=== PATIENT | male | born 1995 | race Caucasian/White ===

== ENCOUNTER 2023-04-24 20:39 | Emergency (ER) | payer MEDICARE, OTHER, SELFPAY ==
[2023-04-24] VITALS (7 sets, daily range): BP systolic 93–101; BP diastolic 60–77; BMI 23.2
[2023-04-24] MEDS: NSS 500 IV (21:14)
--- NOTE | 2023-04-24 22:56 | ED.GENMED ---
History of Present Illness
General
Chief Complaint: Overdose Unintentional
Source: patient, family (Parents) and ambulance crew
Exam Limitations: none
Time Seen by Provider: 04/24/23 21:04
Nursing documentation reviewed up to this point in time: agreed with
Travel History
Have you had any contact with someone who has COVID-19?: No
Do you have any symptoms of coronavirus? Fever > 100 degrees, chills, cough, shortness of breath, sore throat, loss of taste or smell, muscle aches, or headache?: No
History of Present Illness
History of Present Illness:
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
from home for evaluation after an unintentional overdose. Patient reports that he took 1 pill of what he thought was just a Xanax tonight he thinks it was adulterated with opiate apparently became unresponsive and EMS was called by his parents he
was given 4 mg of Narcan and immediately woke up. Was transported to the emergency room for assessment. Patient says that he feels well now has no complaints. Denies any nausea or vomiting. Denies any headache. Denies any abdominal pain.
Denies any shortness of breath. He is currently on house arrest for drug violations per mother.
Past History
Past History
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
ED Past Surgical History: Urological (Superpubic cath, Double J stents, nephrostomy tubes)
Social History
Tobacco: Non-smoker
Alcohol: None
Drug: Marijuana and Narcotics (Heroine and Fentanyl snorts)
Personal: Single
Living: with family
Review of Systems
Review of Systems
All Other Systems: ROS reviewed and negative except as documented in HPI and ROS
Respiratory: Denies trouble breathing
Cardiac: Denies chest pain
ABD/GI: Denies abdominal pain, nausea, vomiting or diarrhea
: Denies flank pain
Musculoskeletal: Denies neck pain or back pain
Neurological: Denies headache
Phy Exam
Physical Exam
Physical Exam:
General: Awake, alert, oriented x3; no acute distress
Head: Normocephalic, atraumatic
Eyes: Conjunctiva normal, pupils 4 mm and reactive to light bilaterally
Throat: Airway intact, handling secretions; very poor dentition
Neck: Trachea midline, supple without meningismus
Lungs: Clear to auscultation bilaterally, no wheezing, rales, rhonchi
Heart: Regular rate and rhythm, no murmurs, gallops, or rubs
Abd: Soft, non distended, nontender
Back: Bilateral nephrostomy tubes in place no signs of infection
Neuro: Cranial nerves grossly intact, speech fluid
Skin: no rash
Extremities: No edema in extremities, equal pulses in all extremities; tracking anklet on right ankle
Scores
Heart Failure Risk
Heart Failure Risk Score: Not Applicable
Heart Score for Chest Pain Patients
STEMI patient?: Not applicable
Withdrawal Assessment of Alcohol
Withdrawal Assessment Completed?: Not applicable
Course
Orders/Labs/Results
Orders:
Orders
04/24/23 21:11
Pulse Ox/cont/shift [RESP] Stat
Quantity: 1
04/24/23 21:12
0.9% Sodium Chloride 500 ml [Nss] 500 ml IV BOLUS
Vital Signs
Initial and Last Documented VS:
Initial Vital Signs
Temp Pulse Resp BP Pulse Ox
36.7 C 71 16 93/65 100
04/24/23 20:42 04/24/23 20:42 04/24/23 20:42 04/24/23 20:42 04/24/23 20:42
Last Documented Vital Signs
Temp Pulse Resp BP Pulse Ox
36.7 C 75 17 93/60 96
04/24/23 23:06 04/24/23 23:45 04/24/23 23:45 04/24/23 23:00 04/24/23 23:45
MDM/Problems Addressed
Differential Diagnosis Includes:
Opioid overdose, benzodiazepine overdose
MDM/Problems Addressed:
27-year-old male presents with parents for evaluation after an unintentional opioid overdose. Patient claims that he was just using benzos but became unresponsive and required Narcan with immediate response. He is now widely awake and has no
complaints. He is currently on house arrest. He takes methadone chronically for his opioid use. Will continue to monitor here in the emergency room on continuous pulse oximetry. Will provide some gentle fluids. Repeat Narcan if needed.
Discussed with PATT to speak with patient.
PATT spoke with patient�she is already plugged into intensive outpatient treatment and on methadone. Apparently police also reported this episode to patient's air control/anti air warfare officer; he is currently on house arrest for substance violations. Provided
Narcan to patient/parents in hand here--patient currently lives with parents.
Observed for 4 hours with no need for repeat Narcan patient awake and alert with stable vital signs. Will discharge with Narcan in hand as above.
Chronic conditions affecting care:
Substance use
*Pulse Oximetry
Patient hypoxic: no
*Critical Care Note
Total Time (30-74mins, 75-104mins- exclusive of procedures): Not Applicable
Data Reviewed
Source: patient, family and ambulance crew
Patient Management
Social determinants of health affecting care: Substance abuse
Discussion with other providers: Other (spoke with PATT)
ED Attending Note
-
Portions of this chart may have been created with voice recognition software.� Occasional wrong word or��sound alike� substitutions may have occurred due to the inherent limitations of voice recognition software.
Discharge Plan
Departure
Patient Disposition: Home (Routine Discharge)
Date of Disposition: 04/25/23
Time of Disposition: 00:30
Patient with high blood pressure during this ER visit?: No
Discharge Problem:
Opioid overdose
Instructions: Opioid Overdose (DC), How to Give Naloxone
Prescriptions:
No Action
quetiapine 100 MG tablet
200 mg PO DAILY
prochlorperazine maleate 10 MG tablet
10 mg PO Q8HPRN PRN (Reason: nausea) Qty: 20 0RF
buprenorphine HCl 2 MG tablet, sublingual
2 mg sublingual Daily Qty: 14 0RF
naloxone 0.4 MG/ML solution
0.4 mg IM UD Qty: 1 0RF
quetiapine 100 mg tablet
100 mg PO HS Qty: 10 0RF
levofloxacin 500 mg tablet
500 mg PO DAILY 7 Days Qty: 7 0RF
cefdinir 300 mg capsule
300 mg PO BID Qty: 14 0RF
ondansetron 4 mg tablet,disintegrating
4 mg PO Q8H PRN (Reason: nausea and vomiting) 4 Days Qty: 10 0RF
cefdinir 300 mg capsule
300 mg PO BID Qty: 20 0RF
Referrals:
UNKNOWN - PT DOES,NOT KNOW [Family Provider] -
Activity Restrictions/Additional Instructions:
YOU MUST STOP USING DRUGS OR IT WILL KILL YOU. IF YOU EVER NEED HELP WITH YOUR SUBSTANCE USE YOU CAN ALWAYS RETURN TO THE ED HERE.
Thank you for visiting the Emergency Department at [facility].
1. Please schedule a follow up appointment as directed. Call first thing tomorrow morning to make an appointment.
2. If indicated, please take your medications as instructed and indicated on discharge paperwork.
3. If any of your symptoms do not improve, or persist, or become more severe within 6-12 hours, please return to the emergency department for further care.
4. Please return to the emergency department if you develop a headache, neck pain/stiffness, fever greater than 100.4F, chest pain, shortness of breath, persistent nausea, vomiting, slurred speech, difficulty walking, numbness/tingling, weakness,
signs of infection or any other symptoms that are worrisome to you.
Please call [phone] if you have any questions.
Interventions
Interventions:
*Risk Screen - Suicide Last Done: 04/24/23 20:42
*General Assessment Last Done: 04/24/23 20:42
*Neglect/Abuse Screening Last Done: 04/24/23 20:42
ED- Cardiac Assessment Last Done: 04/24/23 21:00
ED- Neurological Assessment Last Done: 04/24/23 21:00
ED-Psychological Assessment Last Done: 04/24/23 21:00
ED- Pulmonary Assessment Last Done: 04/24/23 21:00
[2023-04-25] VITALS: BP 92/60
== END 2023-04-25 01:25 | disposition home or self-care (01) ==
LOC: EMR 20:39
PROVIDERS: EMERGENCY PHYSICIAN Emergency Medicine
DX: T40.2X1A Poisoning by other opioids, accidental (unintentional), initial encounter (principal); R40.4 Transient alteration of awareness; F43.10 Post-traumatic stress disorder, unspecified; I12.9 Hypertensive chronic kidney disease with stage 1 through stage 4 chronic kidney disease, or unspecified chronic kidney disease; N18.9 Chronic kidney disease, unspecified; F11.20 Opioid dependence, uncomplicated; K21.9 Gastro-esophageal reflux disease without esophagitis; F41.9 Anxiety disorder, unspecified; F32.A Depression, unspecified; F90.9 Attention-deficit hyperactivity disorder, unspecified type; F19.10 Other psychoactive substance abuse, uncomplicated; F17.210 Nicotine dependence, cigarettes, uncomplicated; Z93.6 Other artificial openings of urinary tract status; Z85.830 Personal history of malignant neoplasm of bone; Z92.3 Personal history of irradiation; Z92.21 Personal history of antineoplastic chemotherapy
CPT/HCPCS: 99284; 96360

== ENCOUNTER 2023-06-13 16:17 | Inpatient (IN) | payer MEDICARE, OTHER, SELFPAY ==
[2023-06-13] VITALS (21 sets, daily range): BP systolic 90–146; BP diastolic 58–106; BMI 21.9
--- NOTE | 2023-06-13 12:30 | ED.GENMED ---
History of Present Illness
General
Chief Complaint: Overdose Unintentional
Time Seen by Provider: 06/13/23 12:22
Travel History
Have you had any contact with someone who has COVID-19?: No
Do you have any symptoms of coronavirus? Fever > 100 degrees, chills, cough, shortness of breath, sore throat, loss of taste or smell, muscle aches, or headache?: No
History of Present Illness
History of Present Illness:
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
overdose. Has a history of chronic opioid use, on methadone, was in this hospital 2 months ago after an opioid overdose. Father is aware of the that the patient uses fentanyl. Was given 4 mg of intranasal Narcan and CPR was initiated for the
patient woke up. On my examination the patient is somnolent with incomprehensible speech but adequate respiratory drive. Per father his last nephrostomy tube change was at least 3 months ago at [facility], this is supposed to be done monthly or
bimonthly
Past History
Past History
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
ED Past Surgical History: Urological (Superpubic cath, Double J stents, nephrostomy tubes)
Social History
Tobacco: Non-smoker
Alcohol: None
Drug: Marijuana and Narcotics (Heroine and Fentanyl snorts)
Personal: Single
Living: with family
Review of Systems
Review of Systems
Allergies reviewed?: Yes
All Other Systems: ROS reviewed and negative except as documented in HPI and ROS
Phy Exam
Physical Exam
Physical Exam:
GEN: Somnolent, pale, ill-appearing
Eyes: PERRLA, EOMs intact, no scleral icterus
HENT: NCAT, oral mucosa moist
Lungs: CTAB, no wheezes, rales, rhonchi, normal chest wall excursion
Cardiac: RRR, no M/R/G, no peripheral edema. Radial pulses 2+ bilat
Abdomen: S, NT, ND, NABS, no masses or hepatosplenomegaly. Bilateral nephrostomy tube sites without erythema or discharge
Neuro: A somnolent, minimal arousable to voice, incomprehensible speech
MSK: No gross deformity or ecchymosis.
Skin: No rashes, petechiae. Normal color, no pallor or jaundice.
Psych: Calm, cooperative, proper hygiene
Course
Orders/Labs/Results
Orders:
Orders
06/13/23 12:28
Electrocardiogram (*1) Urgent
Reason for Study: Other
Other Reason for Exam: overdose
EKG- Treatment ONCE
06/13/23 12:30
Naloxone [Narcan] 2 mg .ROUTE .STK-MED ONE
Naloxone [Narcan] 2 mg IV NOW STA
06/13/23 12:35
Complete Blood Count/With Diff Urgent
Comprehensive Metabolic Panel Urgent
06/13/23 13:07
Cefepime HCl [Maxipime] 1,000 mg IV NOW STA
06/13/23 13:13
Lactic Acid Q4H
Comment: CANCEL 2nd LACTIC ACID IF 1st LACTIC ACID IS LESS THAN 2
Blood Culture Q30M
PEDRO LUIS Source: Blood/Venous
Specimen Description:
06/13/23 13:20
Urinalysis Reflex To Culture Urgent
Date Specimen was Collected: 06/13/23
Time Specimen was Collected: 13:12
Urine Microscopic Reflex Cult Urgent
Blood Culture Q30M
PEDRO LUIS Source: Blood/Venous
Specimen Description:
Urine Culture Urgent
PEDRO LUIS Source: U
Specimen Description:
Date Specimen was Collected: 06/13/23
Time Specimen was Collected: 13:12
06/13/23 13:26
CT Abd/pel Without Iv Or Oral Urgent
Comment:
Reason For Exam: renal failure, bilat nephro tubes
06/13/23 13:39
Sterile Water [Sterile Water For Injection] 10 ml .ROUTE .K-MED ONE
06/13/23 15:19
Admit/Transfer Patient As Directed
Co-Sign Provider:
Level of Care: Inpatient admission
Assign to:: IMU- Intermediate Care
Physician / Group: Alcira
Diagnosis: Drug overdose
Reason for Hospitalization: Drug dose and mental status change
Expected length of stay greater than two midnights?: Yes
ELOS- Estimated Length of Stay in days: 3
I certify the patient meets the requirements for IP care: Yes
06/13/23 15:21
Code Status As Directed
Resuscitation Status: Full Code
06/13/23 16:00
Dextrose 5%/0.9%Sodchl 1000 ml [D5/0.9% Sodium Chloride] 1,000 ml IV 100 mls/hr
Abnormal Lab Results
06/13/23 06/13/23
12:35 13:20
WBC 15.1 H 10^3/uL
(4.8-10.8)
RBC 3.13 L 10^6/uL
(4.70-6.10)
Hgb 9.2 L g/dL
(13.0-18.0)
Hct 30.2 L %
(39.0-52.0)
MCV 96.5 H fL
(80.0-94.0)
MCHC 30.5 L g/dL
(33.0-37.0)
Abs Immat Gran (auto) 0.1 H 10^3/uL
(0-0.05)
Absolute Neuts (auto) 10.5 H 10^3/uL
(1.4-6.5)
Absolute Monos (auto) 1.0 H 10^3/uL
(0.1-0.6)
Absolute Eos (auto) 0.8 H 10^3/uL
(0-0.7)
Immature Gran % 0.9 H %
(0-0.5)
Lymphocytes % 17.1 L %
(20.5-51.1)
Chloride 109 H mmol/L
(98-107)
BUN 75 H mg/dl
(9-20)
Creatinine 3.9 H mg/dL
(0.7-1.3)
Glucose 106 H mg/dl
(70-99)
Ur Occult Blood Reflex 2+ A
(Negative)
Leukocyte Esterase Rfl 2+ A
(Negative)
Urine WBC (Reflex) >100 A /HPF
(0-5)
Urine Bacteria (Reflex) Many A
(Negative)
Urine Albumin (Reflex) 1+ A
(Neg - Trace)
06/13/23 12:35
06/13/23 12:35
Vital Signs
Initial and Last Documented VS:
Initial Vital Signs
Temp Pulse Resp BP Pulse Ox
97.5 F 63 16 127/85 100
06/13/23 12:16 06/13/23 12:16 06/13/23 12:16 06/13/23 12:16 06/13/23 12:16
Last Documented Vital Signs
Temp Pulse Resp BP Pulse Ox
97.5 F 70 14 106/72 96
06/13/23 12:16 06/13/23 14:15 06/13/23 14:15 06/13/23 14:15 06/13/23 14:15
MDM/Problems Addressed
MDM/Problems Addressed:
Although he presented this patient does not signs of sepsis including leukocytosis, urinalysis taken from the nephrostomy is clearly infected. Will start the patient on broad-spectrum antibiotics, acute kidney injury could be on the basis of sepsis
versus nephrostomy obstruction versus prerenal due to lack of fluid intake. Will start IV fluid resuscitation. Did require multiple rounds of low-dose naloxone in the emergency department to return to mental status capable of maintaining his
airway. Will be admitted to the hospital service for further management
*Critical Care Note
Total Time (30-74mins, 75-104mins- exclusive of procedures): Not Applicable
ED Attending Note
-
Portions of this chart may have been created with voice recognition software.� Occasional wrong word or��sound alike� substitutions may have occurred due to the inherent limitations of voice recognition software.
Discharge Plan
Departure
Patient Disposition: Admit
Date of Disposition: 06/13/23
Time of Disposition: 14:39
Admit to: Med/Surg
Presentation/result/management discussed w/ accepting MD/DO: Hospitalist
Discharge Problem:
Opiate overdose, Sepsis, Urinary tract infection
Prescriptions:
No Action
quetiapine 200 mg tablet
100 - 200 mg PO HS
Patient Comments:
06/13/2023: Family unsure if pt is taking full dose of medication
methadone
1 dose PO DAILY
Patient Comments:
06/13/2023: family think he's taking 60-70mg range. Pt goes to [facility] in [place] , Hours: Pr- [id number], SuSa [id number]

Referrals:
UNKNOWN - PT DOES,NOT KNOW [Family Provider] -
Interventions
Interventions:
*Risk Screen - Suicide Last Done: 06/13/23 15:47
*General Assessment Last Done: 06/13/23 12:16
*Neglect/Abuse Screening Last Done: 06/13/23 15:47
ED- Fall Risk Assessment Last Done: 06/13/23 12:43
*ED COVID-19 Vaccine History Last Done: 06/13/23 12:16
ED- Cardiac Assessment Last Done: 06/13/23 12:43
ED- Neurological Assessment Last Done: 06/13/23 12:43
ED-Psychological Assessment Last Done: 06/13/23 15:48
ED- Pulmonary Assessment Last Done: 06/13/23 15:48
Discharge Date and Time
Print Language: [place]
[2023-06-13] MEDS: NARCAN 2 MG IV (12:35)
[2023-06-13 12:49] LABS: % Basophils 0.7 % (0-2); % Eosinophils 5.1 % (0-6); % Immature Granulocytes 0.9 % (0-0.5); % Lymphocytes 17.1 % (20.5-51.1); % Monocytes 6.7 % (1.7-9.3); % Neutrophils 69.5 % (42.2-75.2); Absolute Basophils 0.1 10^3/uL (0-0.2); Absolute Eosinophils 0.8 10^3/uL (0-0.7); Absolute Immature Granulocytes 0.1 10^3/uL (0-0.05); Absolute Lymphocytes 2.6 10^3/uL (1.2-3.4); Absolute Neutrophils 10.5 10^3/uL (1.4-6.5); Hematocrit 30.2 % (39.0-52.0); Hemoglobin 9.2 g/dL (13.0-18.0); Mean Corp Hgb Conc. 30.5 g/dL (33.0-37.0); Mean Corpuscular Hgb 29.4 pg (27.0-31.0); Mean Corpuscular Volume 96.5 fL (80.0-94.0); Mean Platelet Volume 9.5 fL (7.4-10.4); Nucleated Red Blood Cells % 0 % (-); Platelet Count 399 10^3/uL (130-400); Red Blood Cell Count 3.13 10^6/uL (4.70-6.10); Red Cell Dist. Width 12.4 % (11.5-14.5); White Blood Cell Count 15.1 10^3/uL (4.8-10.8)
[2023-06-13 12:54] LABS: ALT (SGPT) 25 U/L (0-50); AST (SGOT) 24 U/L (17-59); Alkaline Phosphatase 109 U/L (38-126); Blood Urea Nitrogen 75 mg/dl (9-20); Carbon Dioxide 22 mmol/L (22-30); Chloride 109 mmol/L (98-107); Glucose 106 mg/dl (70-99); Potassium 4.3 mmol/L (3.5-5.1); Sodium 139 mmol/L (135-145); Total Bilirubin 0.2 mg/dl (0.2-1.3); Total Protein 7.8 g/dl (6.3-8.2); eGFR 20.66
[2023-06-13 13:37] LABS: Lactic Acid 1.5 mmol/L (0.7-2.0)
[2023-06-13] MEDS: MAXIPIME 1000 MG IV (13:40)
[2023-06-13 13:44] LABS: Urine Albumin 1+ (Neg - Trace); Urine Bilirubin Negative (Negative); Urine Character Very Cloudy (Clear); Urine Color Yellow; Urine Glucose Negative (Negative); Urine Ketone Negative (Negative); Urine Leukocyte 2+ (Negative); Urine Nitrite Negative (Negative); Urine Occult Blood 2+ (Negative); Urine Urobilinogen Negative (Neg - 1+)
[2023-06-13 14:35] LABS: Urine Bacteria Many (Negative); Urine White Cell >100 /HPF (0-5)
--- NOTE | 2023-06-13 15:25 | HPS.HSE ---
Family Physician
-
Family Physician: NOT KNOW UNKNOWN - PT DOES
Chief Complaint
-
Mental status change
History of Present Illness
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
sarcoma.
He is has history of recurrent UTI and chronic narcotic use and abuse, and on methadone now.
Currently lethargic but arousable answer question but briefly and sometimes has to pause for a while and vital signs stable, he admitted he over dosed on fentanyl by inhaling it, found unresponsive look like EMS was called CPR was started and given
some Narcan and he woke up.
In the ER as mentioned he is lethargic, answer question briefly and but maintaining normal respiration vital signs and O2 saturation. Denies any fever or chill or cough or congestion or any headache or vision change.
Admit he takes methadone and he is not able to recall the doses right now below, X 60 to 70 mg and the phone number of his methadone clinic is in the chart .
The ER workup concerning for UTI.
According to the ER his father mentioned that the last time his nephrostomy catheter was changed was 3 months ago and supposed to be change monthly. Usually follow-up with [facility].
Currently patient alone in the room no family member at the bedside.
His condition discussed with the ER staff
Medical History
Past Medical History
Past Medical History: Reports Other
Additional Past Medical History:
Past medical history reviewed and obtained from the archive:
Johnson sarcoma, diagnosed in early age, treated with chemo and radiation
Chronic kidney disease stage III-IV
Chronic narcotic dependent
History of narcotic abuse
Recurrent UTI
Status post bilateral nephrostomy tube obstructive and Mcmahan catheter secondary to neurogenic bladder.
Social history: Lives with the family, the details cannot be obtained.
Family history: Cannot be obtained
Past Surgical History: Reports Other
Social History
Unable to obtain full social history at this time due to: Other
Family History
Family History: Other
Allergies / Home Medications
Allergies reflects when Allergies were last updated in [facility].
Home Medications with original date entered in [facility]
Allergy/Medication List:
Allergies
Allergy/AdvReac Type Severity Reaction Status Date / Time
vancomycin Allergy Pharmacy Verified 06/13/23 12:21
to Review
Home Medications
methadone 1 dose PO DAILY 06/13/23
quetiapine 200 mg tablet 100 - 200 mg PO HS 06/13/23
Review of Systems
-
Unable to obtain full review of systems at this time due to: Acuity
Physical Exam
Vital Signs
Vital Signs
Temp Pulse Resp BP Pulse Ox
97.5 F 70 14 106/72 96
06/13/23 12:16 06/13/23 14:15 06/13/23 14:15 06/13/23 14:15 06/13/23 14:15
Physical exam:
General: Does not follows command full Sleepy, arousable, verbalize few words, not in distress, oriented to person and place, maintain normal respiration,, not in distress and holds appropriate conversation.
HEENT: No active discharge, ecchymosis or bruising, dry lips, tongue and mucous membrane.
Eyes: No discharge or red conjunctiva, no nystagmus, pupils are reactive and equal
Neck:Supple, no JVD no bruit no goiter.
Respiratory: Normal AP contour and diameter, normal chest wall movement, normal respiratory effort, no respiratory distress,
Lungs: Good air entry bilaterally, no wheezing or rhonchi, no rales or crackles
Heart: S1, S2 regular, normal rate, no added sound.
Genitourinary: Status post suprapubic Mcmahan catheter no skin abnormality, also bilateral nephrostomy tube with no leak or abnormality around the tubes.
Gastrointestinal: Positive bowel sounds, soft, nontender, no guarding or rigidity or organomegaly
Musculoskeletal: , no chest wall abnormality or tenderness. All joints and extremities have good range of motion, no muscle tenderness or any joint swelling or tenderness.
Extremities: No pitting edema, good peripheral pulses, good range of motion
Skin: Warm and dry, no ulceration, normal color.
Neurological: Sleepy, lethargic, arousable, does not follows command fully, good muscle tone
Physical Exam
General: Other
Laboratory Results
-
06/13/23 12:35
06/13/23 12:35
Laboratory Results
Lactic Acid Cancelled 06/13/23 17:15
Total Bilirubin 0.2 mg/dl (0.2-1.3) 06/13/23 12:35
AST 24 U/L (17-59) 06/13/23 12:35
ALT 25 U/L (0-50) 06/13/23 12:35
Alkaline Phosphatase 109 U/L (38-126) 06/13/23 12:35
Data Reviewed
-
Medical Tests (Nuc Med, Echo, EKG etc): Image Personally Visualized and interpreted
Lab Data: Labs Reviewed by me
Old Records: Reviewed
Impression/Plan
-
IMPRESSION:
Unfortunate 27-year-old male with history of Johnson sarcoma status post chemoradiation leading to neurogenic bladder and having bilateral nephrostomy and suprapubic catheter also has a history of the chronic narcotic use and abuse. Found for mental
status change which attributed to overdose of fentanyl was patient admitted while other causes like infection to be a possibility.
Acute encephalopathy, likely secondary to Narcan overdose, while other causes including infection may need to be considered and rule out
Fentanyl overdose
Acute on chronic renal failure, his baseline creatinine between 2-3 today's more than 3
Dehydration
Leukocytosis,
Doubt sepsis is on the white cell count elevated and mental status change likely secondary to Narcan abuse
UTI likely secondary to nephrostomy and Mcmahan catheter induced
Chronic narcotic dependent
History of polysubstance abuse
History of Johnson sarcoma
PLAN:
IV fluids with D5 normal saline
Keep n.p.o. for now because of his mentation will monitor if his mentation improves and will start feeding him
Admit in IMU with close monitoring
Get an ABG
Chest x-ray
Will cover with Rocephin as I reviewed the archive and in the past she grew E. coli and sensitive to Rocephin.
Antibiotic to be de-escalated pending culture and sensitivity
Close monitoring of the vital sign and airway.
Will hold off his methadone today when he said he took his dose today until we get actual dose from him tomorrow already has been intoxicated overdose with narcotic
Continue Seroquel
Fall aspiration precaution
Recheck lab
Will see if he is here by Thursday then may consider IR for nephrostomy and suprapubic catheter placement hopefully by then he is jerzy be more alert and tell us what was exactly been change.
CODE STATUS full code
DVT prophylaxis SCD
[2023-06-13] MEDS: D5/0.9% SODIUM CHLORIDE 1000 IV (15:41)
[2023-06-13] MEDS: SEROQUEL 200 MG PO (22:36)
[2023-06-14] VITALS (13 sets, daily range): BP systolic 99–149; BP diastolic 60–97
[2023-06-14] MEDS: ROCEPHIN 1000 MG IV (02:20)
[2023-06-14] MEDS: STERILE WATER FOR INJECTION 10 ML IV (02:20)
[2023-06-14] MEDS: D5/0.9% SODIUM CHLORIDE 1000 IV ×2 (02:21→13:09)
--- NOTE | 2023-06-14 03:27 | PTCARENOTE ---
Pt ringing llanes for drink, SUPERVISOR MILL contacted to see if diet order could be changed. Pt now on Reg diet. Pt becoming more alert. This RN finished admission questions. Prompted to make SUPERVISOR MILL awake of need for COWS, due to drug use. Pt known CKD CrCL less then
25 so holding off medications for now until morning methadone does, per SUPERVISOR MILL. Q1 COWS starting (see work list). Pt medical information release sent down to pharmacy to verify methadone does at Pt clinic. Copy of form on chart. Pt admitted with B/L
capped nephrostomies and suprapubic catheter. Pt also has ankle monitor on, per Pt his youth officer is aware he is in hospital.
[2023-06-14 05:20] LABS: Amphetamines Negative (Negative); Barbiturates Negative (Negative); Benzodiazepines Positive (Negative); Buprenorphine Negative (Negative); Cocaine Negative (Negative); Marijuana Negative (Negative); Methadone Positive (Negative); Methamphetamines Negative (Negative); Opiates Negative (Negative); Phencyclidine Negative (Negative); Tricyclic Antidepressants Negative (Negative)
[2023-06-14 05:37] LABS: % Basophils 0.6 % (0-2); % Eosinophils 5.8 % (0-6); % Immature Granulocytes 0.8 % (0-0.5); % Lymphocytes 17.6 % (20.5-51.1); % Monocytes 7.6 % (1.7-9.3); % Neutrophils 67.6 % (42.2-75.2); Absolute Basophils 0.1 10^3/uL (0-0.2); Absolute Eosinophils 0.7 10^3/uL (0-0.7); Absolute Immature Granulocytes 0.1 10^3/uL (0-0.05); Absolute Monocytes 0.9 10^3/uL (0.1-0.6); Absolute Neutrophils 7.6 10^3/uL (1.4-6.5); Hematocrit 27.9 % (39.0-52.0); Hemoglobin 8.3 g/dL (13.0-18.0); Mean Corp Hgb Conc. 29.7 g/dL (33.0-37.0); Mean Corpuscular Hgb 29.1 pg (27.0-31.0); Mean Corpuscular Volume 97.9 fL (80.0-94.0); Mean Platelet Volume 9.6 fL (7.4-10.4); Nucleated Red Blood Cells % 0 % (-); Platelet Count 357 10^3/uL (130-400); Red Blood Cell Count 2.85 10^6/uL (4.70-6.10); Red Cell Dist. Width 12.2 % (11.5-14.5); White Blood Cell Count 11.3 10^3/uL (4.8-10.8)
[2023-06-14 05:46] LABS: Fentanyl, Urine Positive (Negative)
[2023-06-14 05:56] LABS: Blood Urea Nitrogen 62 mg/dl (9-20); Calcium 9.1 mg/dl (8.4-10.2); Carbon Dioxide 20 mmol/L (22-30); Chloride 112 mmol/L (98-107); Estimated Creatinine Clearance 25 ml/min; Glucose 104 mg/dl (70-99); Potassium 4.3 mmol/L (3.5-5.1); Sodium 139 mmol/L (135-145); eGFR 24.36
--- NOTE | 2023-06-14 06:36 | W.PN.HOSP.TC ---
Today's Communication/Plan
-
cont IVF support
monitor renal function
bladder scan
Urology GI Psych eval
resume home methadone
Assessment / Plan
Assessment / Plan
Physical Exam
General: No pallor, cyanosis, or jaundice.
HEENT: Throat clear. PERRLA Normocephalic atraumatic
NECK: Supple. No JVD Carotid Bruits
RESPIRATORY: Lungs clear to auscultation. No crackles wheezes stridor
CVS: S1, S2 normal. RRR. No murmur, rub or gallop.
ABDOMEN: Soft, non-tender. distended, decreased bowel sounds. flank tenderness
EXTREMITIES: No peripheral cyanosis or edema.
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 Here with Fentanyl overdose UTI possible
pyelonephritis CT concerning for severe hydronephrosis and constipation impaction stercoral colitis suspect opiate induced
Acute encephalopathy, likely secondary to Narcan overdose, while other causes including infection may need to be considered and rule out
Fentanyl overdose
Acute on chronic renal failure, initial Cr 3.9 improved to 3.4 with IVF hydration
Dehydration
UTI possibly pyelonephritis
Severe constipation fecal impaction stercoral colitis
Chronic narcotic dependent
History of polysubstance abuse
History of Johnson sarcoma
PLAN:
Mental status improving
IV fluids with D5 normal saline support
Get an ABG
cont IV ceftriaxone
resume home methadone
Continue Seroquel
Urology and GI eval requested
Bladder scan monitoring
patient reports due for nephrostomy tube exchange June 28 with [facility]
Fall aspiration precaution
CODE STATUS full code
DVT prophylaxis SCD
discussed with patient at bedside and patient's mother Drea over phone
I spent a total of 60 minutes with the patient or on the floor. More than 50% of this time involved counseling and coordination of care.
Anticipated Discharge: 24 - 48 hours
Subjective/Interval History
-
Date of Service: June 14, 2023
Lethargic but arousable conversant. Denies pain nausea vomiting diarrhea constipation. Reports that 'they always say that' in reference to reports severe hydronephrosis and constipation. Reports emptying bladder through tubes without issues.
Objective Data
-
Labs:
Laboratory Results
06/14/23
04:55
WBC 11.3 H
Hgb 8.3 L
Hct 27.9 L
Plt Count 357
Sodium 139
Potassium 4.3
Chloride 112 H
Carbon Dioxide 20 L
BUN 62 H
Creatinine 3.4 H
Glucose 104 H
Calcium 9.1
Vital Signs:
Vital Signs
Temp Pulse Resp BP Pulse Ox
98.5 F 99 14 104/60 96
06/14/23 03:42 06/14/23 06:00 06/14/23 06:00 06/14/23 06:00 06/14/23 06:00
I&O
06/12/23 06/13/23 06/14/23
06:59 06:59 06:59
Intake Total 1820 / 1820
Output Total 900 / 900
Balance 920 / 920
--- NOTE | 2023-06-14 10:19 | CON.GI ---
Consultation
-
Date/Time Consultation Performed: 06/14/23
Performing Provider: Julian Wade MD
Reason for Consultation: constipation
Medical History
Chief Complaint / HPI
Chief Complaint: opiod overdose
History of Present Illness:
The patient is a 27-year-old male with past medical history as noted who presents to the emergency room with opioid overdose. We are consulted for constipation and fecal impaction. He has chronic constipation which likely medication induced, and
takes multiple medications at home including MiraLAX, Senokot and stool softeners as needed. He sees GI at [facility]. Currently is not having any significant abdominal pain, last bowel movement was about [address] scan shows large amount of stool
with possible stercoral proctitis and impaction, though again is not having any significant abdominal pain.
Past Medical History
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
Past Surgical History: Other (Status post bilateral nephrostomy tube obstructive and Mcmahan catheter secondary to neurogenic bladder)
Social History
Drug: Narcotics
Allergies / Home Medications
Allergy/AdvReac Type Severity Reaction Status Date / Time
vancomycin Allergy Pharmacy Verified 06/13/23 12:21
to Review
�Medication �Instructions �Recorded
methadone 1 dose PO DAILY 06/13/23
quetiapine 200 mg tablet 200 mg PO HS 06/13/23
Review of Systems
-
All other systems: A 12 pt ROS was Negative except as stated above in HPI
Vital Signs
Temp Pulse Resp BP Pulse Ox
98.9 F 95 13 114/77 99
06/14/23 07:17 06/14/23 08:00 06/14/23 08:00 06/14/23 08:00 06/14/23 08:00
Physical Exam
Exam
General: NAD
HEENT: MMM, anicteric, no lymphadenopathy
Heart: Regular, no murmurs
Lungs: CTA bilaterally
Abdomen: normal bowel sounds, mildly distended though soft, no tenderness, no rebound or guarding, no masses, bruits or ascites, suprapubic tube in place
Extremeties: no edema
Skin: no rashes
Results
WBC 11.3 10^3/uL (4.8-10.8) H 06/14/23 04:55
Hgb 8.3 g/dL (13.0-18.0) L 06/14/23 04:55
Hct 27.9 % (39.0-52.0) L 06/14/23 04:55
MCV 97.9 fL (80.0-94.0) H 06/14/23 04:55
Plt Count 357 10^3/uL (130-400) 06/14/23 04:55
Absolute Neuts (auto) 7.6 10^3/uL (1.4-6.5) H 06/14/23 04:55
Sodium 139 mmol/L (135-145) 06/14/23 04:55
Potassium 4.3 mmol/L (3.5-5.1) 06/14/23 04:55
Chloride 112 mmol/L (98-107) H 06/14/23 04:55
Carbon Dioxide 20 mmol/L (22-30) L 06/14/23 04:55
BUN 62 mg/dl (9-20) H 06/14/23 04:55
Creatinine 3.4 mg/dL (0.7-1.3) H 06/14/23 04:55
Calcium 9.1 mg/dl (8.4-10.2) 06/14/23 04:55
Total Bilirubin 0.2 mg/dl (0.2-1.3) 06/13/23 12:35
AST 24 U/L (17-59) 06/13/23 12:35
ALT 25 U/L (0-50) 06/13/23 12:35
Alkaline Phosphatase 109 U/L (38-126) 06/13/23 12:35
Diagnostic Image Results:
CT:
IMPRESSION:
1. SEVERE CHRONIC BILATERAL HYDROURETERONEPHROSIS with severe bilateral renal cortical thinning. Interval increase in bilateral intrarenal collecting system and ureteral dilatation since 03/27/2022 (especially on the right). Bilateral percutaneous
nephrostomy tubes in place located in the lower pole right intrarenal collecting system and left renal pelvis.
2. Moderate to severe diffuse distention of the colon and rectum with a large amount of fecal material suggesting SEVERE CONSTIPATION and fecal impaction. MILD STERCORAL COLITIS in the rectum. Colonic and rectal distention could be causing distal
bilateral ureteral obstruction.
3. Moderate distention of the urinary bladder with a suprapubic catheter in place.
4. Moderate retroperitoneal lymphadenopathy which has mildly increased since 03/27/2022 and could be malignant lymphadenopathy or benign reactive lymphadenopathy.
5. Mild hepatosplenomegaly.
6. RENAL OSTEODYSTROPHY with diffuse sclerosis throughout the bones consistent with secondary hyperparathyroidism.
Prior GI Procedures:
EGD:
Colonoscopy:
Assessment / Plan
-
1. Constipation: Likely multifactorial but mostly from medications, chronic, followed at [facility], taking multiple medications. On CT scan has large amount of stool with possible mild stercoral proctitis, though has no pain now and exam is benign. At
this point we will start mineral oil enema, if no results then can advance to milk molasses enema. Would continue bowel regimen and will add MiraLAX daily.
-
-
Thank you for consultation and allowing me to participate in the patient's care. Please call the information assurance GI physician during the after hours with any questions or concerns.
--- NOTE | 2023-06-14 10:55 | W.PN.UPDATE ---
Update Note
Progress Note Update
Patient refusing enema. Again would recommend enema, though also ordered MiraLAX daily. If he is agreeable would do mineral oil enema, followed by milk molasses if not responding. Will sign off for now, please call back with any further questions.
--- NOTE | 2023-06-14 11:05 | PTCARENOTE ---
Pt is refusing enema as he states it makes him anxious. Tried to educate pt with negative results. Pt bladder scan post empting of supra pubic , pt scanned for 610 , attempted to straight cath as protocol and pt refused as he states his supra pubic
tube needs to be changed. will alert Dr Werner
[2023-06-14] MEDS: MIRALAX 17 GRAMS PO (11:25)
--- NOTE | 2023-06-14 11:56 | PTCARENOTE ---
Pt was incont of BM
--- NOTE | 2023-06-14 12:38 | W.PN.URO.CBU ---
Today's Communication / Plan
-
No intervention waranted at present time
Discussed with hospitalist
Assessment / Plan
-
High-pressure neurogenic bladder with chronic vesicoureteral reflux managed with upper and lower tract percutaneous drains ([facility])
Patient is scheduled for tube exchange 06/29/23
Urologically stable and cleared for discharge
Diagnosis
-
Date of Service: June 14, 2023
-
Patient Diagnosis:
Patient was admitted for unintentional narcotic overdose with street drugs
History of Johnson's sarcoma of the pelvic bones diagnosed at age 12 years: treated with chemoradiation (no recurrence)
Neurogenic high-pressure bladder secondary to radiation with resultant reflux nephropathy (upper and lower tract drained percutaneously)
06/13/23 CT scan confirms good drain position (SP tube was clamped for study), marked bilateral hydroureteronephrosis: images personally reviewed
Subjective
-
c/o abdominal pain likely secondary to constipation
Objective
-
Vital Signs
Temp Pulse Resp BP Pulse Ox
98.9 F 95 13 114/77 99
06/14/23 07:17 06/14/23 08:00 06/14/23 08:00 06/14/23 08:00 06/14/23 08:00
Intake and Output
06/13/23 06/14/23 06/15/23
06:59 06:59 06:59
Intake Total 1820 / 1820
Output Total 900 / 900 100 / 100
Balance 920 / 920 -100 / -100
Intake:
Oral fluids 720 / 720
IV fluids (Total) 1100 / 1100
Output:
Urinary Drain Output (Total) 0 / 0
Left Nephrostomy 0 / 0
Right Nephrostomy 0 / 0
Suprapubic output 900 / 900 100 / 100
Laboratory Results
06/14/23 04:55
06/14/23 04:55
Review of Systems
-
Constitutional: No Symptoms
Respiratory: No Symptoms
Cardiac: No Symptoms
Abdomen/GI: Abdominal Pain
Neurological: No Symptoms
Physical Exam
-
General - thin, no acute distress
Abdomen - soft, tender, no rebound pain, tympanitic; SP tube draining clear urine, bilateral nephrostomy tubes draining clear urine
Genitalia - normal
[2023-06-14] MEDS: METHADONE 100 MG/10 ML 40 MG PO (12:48)
--- NOTE | 2023-06-14 13:07 | CS.PSYCHR ---
Consult Summary - Psychiatry
-
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
He is has history of recurrent UTI, narcotic use, now on methadone maintenance for the past few months per pt. Pt presented lethargic, admitted overdose on fentanyl by inhaling it. Pt was reportedly found unresponsive, EMS was called and pt was
revived with Narcan. Pt resting in bed, in no distress, just received confirmed dose of Methadone. Pt denies any suicidal ideation or intent for self harm, states OD on Fentanyl was accidental. Pt reports he goes to [facility] in [place] for
Methadone maint tx. He reports hx of 'PTSD, depression, anxiety,' but denies any active issues. Has occasional nightmares.
Psych Hx: depression, anxiety, PTSD per pt. Hx of outpatient therapy. Denies hx of inpatient tx; denies hx of suicidal behavior
SH: on probation; non-contributory
MSE: alert, oriented, calm, cooperative. Speech coherent, thought clear/goal-directed. Mood/Affect stable/appropriate. No agitation, no signs of psychosis or mood disturbance. Insight appears limited
Imp: Opioid Use d/o, on methadone maintenance tx; accidental OD on Fentanyl
Hx of anxiety, depression, stable on existing med Seroquel. Pt denies any SI
Rec: return to existing Outpatient treatment- Methadone Program- when medically stable
will follow peripherally
[2023-06-14] MEDS: TYLENOL 650 MG PO (21:40)
[2023-06-14] MEDS: SEROQUEL 200 MG PO (21:40)
[2023-06-15] VITALS (12 sets, daily range): BP systolic 122–155; BP diastolic 77–102
[2023-06-15] MEDS: STERILE WATER FOR INJECTION 10 ML IV (01:17)
[2023-06-15] MEDS: ROCEPHIN 1000 MG IV (01:17)
[2023-06-15 04:13] LABS: Hematocrit 28.4 % (39.0-52.0); Hemoglobin 8.8 g/dL (13.0-18.0); Mean Corpuscular Hgb 29.1 pg (27.0-31.0); Mean Platelet Volume 9.4 fL (7.4-10.4); Platelet Count 324 10^3/uL (130-400); Red Blood Cell Count 3.02 10^6/uL (4.70-6.10); Red Cell Dist. Width 12.3 % (11.5-14.5); White Blood Cell Count 12.6 10^3/uL (4.8-10.8)
[2023-06-15 04:25] LABS: Blood Urea Nitrogen 59 mg/dl (9-20); Calcium 9.6 mg/dl (8.4-10.2); Carbon Dioxide 22 mmol/L (22-30); Chloride 106 mmol/L (98-107); Estimated Creatinine Clearance 24 ml/min; Glucose 102 mg/dl (70-99); Magnesium 1.7 mg/dl (1.6-2.3); Phosphorus 3.5 mg/dl (2.5-4.5); Sodium 138 mmol/L (135-145); eGFR 23.53
[2023-06-15] MEDS: TUMS 1 TABLET PO (06:04)
--- NOTE | 2023-06-15 06:05 | PTCARENOTE ---
pt c/o indigestion this AM- asking for tums. notified CASSANDRA CONSULTANT- orders placed and medication given per MAR. left nephro tube leaking- dressing changed, care ongoing.
[2023-06-15] MEDS: METHADONE 100 MG/10 ML 40 MG PO (08:30)
[2023-06-15] MEDS: MIRALAX PO (08:31)
--- NOTE | 2023-06-15 08:32 | PTCARENOTE ---
Pt refused Mirialax states he is allergic
--- NOTE | 2023-06-15 09:30 | W.PN.URO.CBU ---
Today's Communication / Plan
-
Urologically stable
No intervention advised
Assessment / Plan
-
High-pressure neurogenic bladder with chronic vesicoureteral reflux managed with upper and lower tract percutaneous drains ([facility])
Patient is scheduled for tube exchange 06/29/23
He has a creatinine of 3.5: advise SP tube be placed to continuous drainage, but patient declines and the presence of nephrostomy tubes does not make this a necessity
Urologically stable and cleared for discharge to follow up with his care team at [facility]
Diagnosis
-
Date of Service: June 15, 2023
-
Patient Diagnosis:
Patient was admitted for unintentional narcotic overdose with street drugs
History of Johnson's sarcoma of the pelvic bones diagnosed at age 12 years: treated with chemoradiation (no recurrence)
Neurogenic high-pressure bladder secondary to radiation with resultant reflux nephropathy (upper and lower tract drained percutaneously)
06/13/23 CT scan confirms good drain position (SP tube was clamped for study), marked bilateral hydroureteronephrosis: images personally reviewed
Subjective
-
Patient offers no complaints
States that his drains are all functioning normally
Objective
-
Vital Signs
Temp Pulse Resp BP Pulse Ox
98.7 F 113 15 128/84 98
06/15/23 08:00 06/15/23 08:00 06/15/23 08:00 06/15/23 08:00 06/15/23 08:00
Intake and Output
06/14/23 06/15/23 06/16/23
06:59 06:59 06:59
Intake Total 1820 / 1820 480 / 480
Output Total 900 / 900 3275 / 3275 400 / 400
Balance 920 / 920 -2795 / -2795 -400 / -400
Intake:
Oral fluids 720 / 720 480 / 480
IV fluids (Total) 1100 / 1100
Output:
Urinary Drain Output (Total) 0 / 0
Left Nephrostomy 0 / 0
Right Nephrostomy 0 / 0
Suprapubic output 900 / 900 3275 / 3275 400 / 400
Laboratory Results
06/15/23 03:57
06/15/23 03:57
Review of Systems
-
Constitutional: No Symptoms
Respiratory: No Symptoms
Cardiac: No Symptoms
Abdomen/GI: Abdominal Pain
Physical Exam
-
General - no acute distress
Abdomen - moderately distended and tender to palpation. All percutaneous drain site dressings clean
Genitalia - normal
--- NOTE | 2023-06-15 13:37 | CM ---
Addendum entered by Jeanette Belcher RN 06/15/23 15:49:
PATT Lezama met with patient who agreed to [facility] Program for Drug Rehab. Teja initiated requested to [facility] for requisite paperwork indicating patient is in good standing with [facility] and able to resume methadone
through them when released from [facility]- [facility] is closed today so he will follow up tomorrow. Clinical info faxed to [facility] who will submit to [facility] for acceptance. Hopefully will be accepted tomorrow.
Reji Ernst and John aware of the plan. Per Dr Lopez, patient does not need Dual Diagnosis program at this time, however he can go to [facility] if he wants for rehab.
Plan follow up with PATT tomorrow if [facility] accepted.
Original Note:
Patient with Hx anxiety, depression with Dx Acute encephalopathy, Fentanyl overdose, Acute on chronic renal failure, Dehydration, UTI possibly pyelonephritis. Patient on probation per MD notes- nurse reports patient wearing ankle bracelet. COWS
protocol. Receiving methadone, IV Abx. Per nurse; patient able to walk ok without difficulty.
Met with patient who resides in a 2 story house with his parents, grand-parents and sister.
The patient and his parents sleep in the living room- patient sleeps on a couch.
Patient states he is independent in ADLs and ambulation.
He has no DME or prior VN.
The patient has no PCP.
Pharmacy - [facility]
CM Consult: Substance Abuse
The patient states he has been to [facility] Inpatient drug rehab 6x, [facility] outpatient program and currently is in an IOP with [facility]. He has been getting his methadone through [facility] for about 6 months.
The patient states he would like a 'dual diagnosis program' an possibly [facility].
He agrees to speak with PATT.
Referral to PATT Lezama.
Plan follow up with PATT.
--- NOTE | 2023-06-15 14:47 | W.PN.HOSP.TC ---
Today's Communication/Plan
-
abx for uti
pending [facility] placement
Assessment / Plan
Assessment / Plan
Physical Exam
General: No pallor, cyanosis, or jaundice.
HEENT: Throat clear. PERRLA Normocephalic atraumatic
NECK: Supple. No JVD Carotid Bruits
RESPIRATORY: Lungs clear to auscultation. No crackles wheezes stridor
CVS: S1, S2 normal. RRR. No murmur, rub or gallop.
ABDOMEN: Soft, non-tender. distended, decreased bowel sounds. flank tenderness
EXTREMITIES: No peripheral cyanosis or edema.
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 Here with Fentanyl overdose UTI possible
pyelonephritis CT concerning for severe hydronephrosis and constipation impaction stercoral colitis suspect opiate induced
#Acute Toxic encephalopathy, likely secondary to Narcan overdose, no evidence of infection at this time
#Fentanyl overdose
#Chronic narcotic dependent
#History of polysubstance abuse
-resolved
-psych following
-[facility] being offered
-COnt methadone
-Seroquel
#Acute on chronic renal failure, initial Cr 3.9 improved to 3.4
#Severe constipation fecal impaction stercoral colitis
=PCNs placed; plan for exchange on 06/29/23
-�Urology consulted, no intervention at this time
� Follow-up at [place] for tube exchange
� Advised tubes should be placed on continuous drainage but patient declines
#UTI
-cont abx
#Constipation
� Most likely multifactorial including medications, followed at [facility]
� Refusing mineral oil enemas despite offering
� Bowel regimen, add MiraLAX daily
� Abdominal 06/13
#History of Johnson sarcoma
CODE STATUS full code
DVT prophylaxis HSQ
Anticipated Discharge: Within 24 hours
Subjective/Interval History
-
Date of Service: June 15, 2023
No acute events, had bowel movement yesterday
Objective Data
-
Labs:
Laboratory Results
06/15/23
03:57
WBC 12.6 H
Hgb 8.8 L
Hct 28.4 L
Plt Count 324
Sodium 138
Potassium 5.0
Chloride 106
Carbon Dioxide 22
BUN 59 H
Creatinine 3.5 H
Glucose 102 H
Calcium 9.6
Vital Signs:
Vital Signs
Temp Pulse Resp BP Pulse Ox
98.4 F 106 18 133/85 97
06/15/23 11:25 06/15/23 10:00 06/15/23 10:00 06/15/23 10:00 06/15/23 10:00
I&O
06/14/23 06/15/23 06/16/23
06:59 06:59 06:59
Intake Total 1820 / 1820 480 / 480
Output Total 900 / 900 3275 / 3275 400 / 400
Balance 920 / 920 -2795 / -2795 -400 / -400
Review of Systems
-
History Source: Patient
All other systems: Not reviewed unless documented
Data Reviewed
-
CT Scan: Image personally visualized and interpreted and Report Reviewed by me
Labs: Labs Reviewed by me
[2023-06-15] MEDS: HEPARIN 5000 UNITS SC (15:57)
[2023-06-15] MEDS: TYLENOL 650 MG PO (21:04)
[2023-06-15] MEDS: SEROQUEL 200 MG PO (21:05)
[2023-06-15] MEDS: HEPARIN SC (23:09)
[2023-06-16] VITALS (12 sets, daily range): BP systolic 115–155; BP diastolic 64–127
[2023-06-16] MEDS: STERILE WATER FOR INJECTION 10 ML IV (02:26)
[2023-06-16] MEDS: ROCEPHIN 1000 MG IV (02:26)
--- NOTE | 2023-06-16 02:41 | PTCARENOTE ---
pt refused sq heparin shot for 0000, stating it hurt too much. pt educated on importance of medication and blood clot prevention. pt verbalizes understanding and states he will agree to shot in the morning.
[2023-06-16 05:27] LABS: Hematocrit 26.4 % (39.0-52.0); Hemoglobin 8.1 g/dL (13.0-18.0); Mean Corp Hgb Conc. 30.7 g/dL (33.0-37.0); Mean Corpuscular Hgb 29.2 pg (27.0-31.0); Mean Corpuscular Volume 95.3 fL (80.0-94.0); Mean Platelet Volume 9.7 fL (7.4-10.4); Platelet Count 317 10^3/uL (130-400); Red Blood Cell Count 2.77 10^6/uL (4.70-6.10); Red Cell Dist. Width 12.5 % (11.5-14.5); White Blood Cell Count 11.6 10^3/uL (4.8-10.8)
[2023-06-16 05:49] LABS: Blood Urea Nitrogen 58 mg/dl (9-20); Calcium 9.9 mg/dl (8.4-10.2); Carbon Dioxide 21 mmol/L (22-30); Chloride 103 mmol/L (98-107); Estimated Creatinine Clearance 25 ml/min; Glucose 125 mg/dl (70-99); Magnesium 1.8 mg/dl (1.6-2.3); Phosphorus 5.7 mg/dl (2.5-4.5); Potassium 5.2 mmol/L (3.5-5.1); Sodium 136 mmol/L (135-145); eGFR 24.36
[2023-06-16] MEDS: LOKELMA 10 GRAM PO (08:37)
[2023-06-16] MEDS: METHADONE 100 MG/10 ML 40 MG PO (08:38)
[2023-06-16] MEDS: HEPARIN SC ×3 (08:42→22:36)
[2023-06-16] MEDS: MIRALAX PO (08:42)
--- NOTE | 2023-06-16 10:03 | PN.CDI ---
CDI
- -
CDI:
Physician Documentation Request
Admit Date: 06/13/23 16:17
Dear Doctor Klever,
Clinical Indicators:
06/13 PN, 'Acute on chronic renal failure, initial Cr 3.9 improved to 3.4'
Cr/GFR trend:
06/13/23 06/14/23 06/15/23
12:35 04:55 03:57
Creatinine 3.9 H 3.4 H 3.5 H
eGFR 20.66 24.36 23.53
06/16/23
04:37
Creatinine 3.4 H
eGFR 24.36
Please clarify which of the following most accurately represents the patient's renal status:
CKD IV with rise in creatinine only
Acute renal failure on baseline CKD, (specify stage of CKD)
Other, please specify
Criteria for TEMITOPE*
1 Increase in serum creatinine by > or = to 0.3 mg/dL (> or = to 26.5 micromol/L) within 48 hours, OR
2 Increase in serum creatinine to > or = to 1.5 times baseline, which is known or presumed to have occurred within 7 days, OR
3 Urine volume < 0.5 nL/kg/hour for six hours
Stages of Chronic Kidney Disease*
Level Description GFR
G1 Normal or High >90
G2 Mildly decreased 60-89
G3a Mildly to moderately decreased 45-59
G3b Moderately to severely decreased 30-44
G4 Severely decreased 15-29
G5 Kidney failure <15
Use of terms such as suspected, likely, concern for, or probable (associated with a specific diagnosis that is being evaluated, monitored, or treated as if it exists) are acceptable and can be coded in the inpatient setting, when documented at the
time of discharge.
Thank you,
REMA Perez RN
CDI Specialist
available via tiger text
Please use your independent medical judgment in providing your response.
*Source: Kidney Disease: Improving Global Outcomes (KDIGO) 2012
--- NOTE | 2023-06-16 10:16 | PTCARENOTE ---
Patient AAOx3, 'tired.' Right nephrostomy tube with slight leak at sight (purulent) and sutures noticed to not be connected, reinforced dressing, MD notified, IR currently at bedside to fix. Patient refusing heparin, DVT video assigned and education
provided. VSS, COWS stable. Continuing to closely monitor patient.
--- NOTE | 2023-06-16 10:21 | PN.IRAD.UPD ---
Update Note - IRAD
- -
Redressed left PCNU with primapore dressing. Resutured and redressed right PCNU with a primapore dressing.
Marc Messina RT(R)()
--- NOTE | 2023-06-16 14:23 | W.PN.HOSP.TC ---
Today's Communication/Plan
-
medically clear - awaiting CM clearance for dc
Assessment / Plan
Assessment / Plan
Physical Exam
General: No pallor, cyanosis, or jaundice.
HEENT: Throat clear. PERRLA Normocephalic atraumatic
NECK: Supple. No JVD Carotid Bruits
RESPIRATORY: Lungs clear to auscultation. No crackles wheezes stridor
CVS: S1, S2 normal. RRR. No murmur, rub or gallop.
ABDOMEN: Soft, non-tender. distended, decreased bowel sounds. flank tenderness
EXTREMITIES: No peripheral cyanosis or edema.
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 Here with Fentanyl overdose UTI possible
pyelonephritis CT concerning for severe hydronephrosis and constipation impaction stercoral colitis suspect opiate induced
#Acute Toxic encephalopathy, likely secondary to Narcan overdose, no evidence of infection at this time
#Fentanyl overdose
#Chronic narcotic dependent
#History of polysubstance abuse
-resolved
-psych following
-[facility] being offered - patient accepting
-COnt methadone
-Seroquel
#Acute on chronic renal failure, initial Cr 3.9 improved to 3.4
#Severe constipation fecal impaction stercoral colitis
=PCNs placed; plan for exchange on 06/29/23
-�Urology consulted, no intervention at this time
� Follow-up at [place] for tube exchange
� Advised tubes should be placed on continuous drainage but patient declines
#Hyperkalemia
-monitor and replete
#UTI
-cont abx - 10 day course
#Constipation
� Most likely multifactorial including medications, followed at [facility]
� Refusing mineral oil enemas despite offering
� Bowel regimen, add MiraLAX daily
� having Bms
#History of Johnson sarcoma
CODE STATUS full code
DVT prophylaxis HSQ
Anticipated Discharge: Within 24 hours
Subjective/Interval History
-
Date of Service: June 16, 2023
some leaking from pcn on the right - IR sutured
Objective Data
-
Labs:
Laboratory Results
06/16/23
04:37
WBC 11.6 H
Hgb 8.1 L
Hct 26.4 L
Plt Count 317
Sodium 136
Potassium 5.2 H
Chloride 103
Carbon Dioxide 21 L
BUN 58 H
Creatinine 3.4 H
Glucose 125 H
Calcium 9.9
Vital Signs:
Vital Signs
Temp Pulse Resp BP Pulse Ox
98.1 F 81 16 125/78 97
06/16/23 11:50 06/16/23 12:00 06/16/23 12:00 06/16/23 12:00 06/16/23 12:00
I&O
06/15/23 06/16/23 06/17/23
06:59 06:59 06:59
Intake Total 480 / 480
Output Total 3275 / 3275 800 / 800 1150 / 1150
Balance -2795 / -2795 -800 / -800 -1150 / -1150
Review of Systems
-
History Source: Patient
All other systems: Not reviewed unless documented
Data Reviewed
-
CT Scan: Image personally visualized and interpreted and Report Reviewed by me
Labs: Labs Reviewed by me
--- NOTE | 2023-06-16 14:37 | CM ---
CM reviewed pt with Dr Ernst- pt remains medically ready for dc
[facility]
Still awaiting clinicals from [facility] to forward to [place] for further review
CM in agreement to forward clinicals to [facility] should [facility] send them to CM office instead
Update to Dr ernst and nursing staff
Dischare Disposition- awaiting inpatient D/A placement, likely at [place]
--- NOTE | 2023-06-16 20:49 | PTCARENOTE ---
Received pt from rosanne LYNCH. Pt is AAOx3, COWs Q shift. Sinus tach on the monitor. On RA O2 sat 96%, lungs clear. Suprapubic vega in place, b/l nephrostomy tubes in place. Pt refusing SCDs and Heparin, education provided. Pt is laying comfortable
in bed with call llanes in reach.
[2023-06-16] MEDS: SEROQUEL 200 MG PO (21:15)
[2023-06-17] VITALS (7 sets, daily range): BP systolic 122–140; BP diastolic 71–95
[2023-06-17] MEDS: ROCEPHIN 1000 MG IV (02:58)
[2023-06-17] MEDS: STERILE WATER FOR INJECTION 10 ML IV (02:59)
[2023-06-17 04:15] LABS: Hematocrit 32.1 % (39.0-52.0); Hemoglobin 9.7 g/dL (13.0-18.0); Mean Corp Hgb Conc. 30.2 g/dL (33.0-37.0); Mean Corpuscular Hgb 28.6 pg (27.0-31.0); Mean Corpuscular Volume 94.7 fL (80.0-94.0); Mean Platelet Volume 9.3 fL (7.4-10.4); Platelet Count 381 10^3/uL (130-400); Red Blood Cell Count 3.39 10^6/uL (4.70-6.10); Red Cell Dist. Width 12.7 % (11.5-14.5); White Blood Cell Count 15.2 10^3/uL (4.8-10.8)
[2023-06-17 04:40] LABS: Blood Urea Nitrogen 57 mg/dl (9-20); Calcium 10.6 mg/dl (8.4-10.2); Carbon Dioxide 23 mmol/L (22-30); Chloride 98 mmol/L (98-107); Estimated Creatinine Clearance 24 ml/min; Glucose 130 mg/dl (70-99); Magnesium 1.9 mg/dl (1.6-2.3); Phosphorus 6.4 mg/dl (2.5-4.5); Potassium 5.1 mmol/L (3.5-5.1); Sodium 137 mmol/L (135-145); eGFR 23.53
[2023-06-17] MEDS: MIRALAX PO (07:48)
[2023-06-17] MEDS: METHADONE 100 MG/10 ML 40 MG PO (07:48)
[2023-06-17] MEDS: HEPARIN SC ×3 (12:56→22:48)
--- NOTE | 2023-06-17 13:51 | W.PN.HOSP.TC ---
Today's Communication/Plan
-
pending bed placement
cont abx
Assessment / Plan
Assessment / Plan
Physical Exam
General: No pallor, cyanosis, or jaundice.
HEENT: Throat clear. PERRLA Normocephalic atraumatic
NECK: Supple. No JVD Carotid Bruits
RESPIRATORY: Lungs clear to auscultation. No crackles wheezes stridor
CVS: S1, S2 normal. RRR. No murmur, rub or gallop.
ABDOMEN: Soft, non-tender. distended, decreased bowel sounds. flank tenderness
EXTREMITIES: No peripheral cyanosis or edema.
CONCRETE FLOATER: Lethargic but arousable coherent conversant
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 Here with Fentanyl overdose UTI possible
pyelonephritis CT concerning for severe hydronephrosis and constipation impaction stercoral colitis suspect opiate induced
#Acute Toxic encephalopathy, likely secondary to Narcan overdose, no evidence of infection at this time
#Fentanyl overdose
#Chronic narcotic dependent
#History of polysubstance abuse
-resolved
-psych following
-[facility] being offered - patient accepting - accepted - awaiting bed
-Cont methadone
-Seroquel
#Acute on chronic renal failure, initial Cr 3.9 improved to 3.4
#Severe constipation fecal impaction stercoral colitis
-PCNs placed; plan for exchange on 06/29/23
-�Urology consulted, no intervention at this time
� Follow-up at [place] for tube exchange
� Advised tubes should be placed on continuous drainage but patient declines
#Hyperkalemia
-monitor and treat
#UTI
-cont abx - 10 day course
#Constipation
� Most likely multifactorial including medications, followed at [facility]
� Refusing mineral oil enemas despite offering
� Bowel regimen, add MiraLAX daily
� having Bms
#History of Johnson sarcoma
CODE STATUS full code
DVT prophylaxis HSQ
Anticipated Discharge: Within 24 hours
Subjective/Interval History
-
Date of Service: June 17, 2023
no acute events;
Objective Data
-
Labs:
Laboratory Results
06/17/23
04:03
WBC 15.2 H
Hgb 9.7 L
Hct 32.1 L
Plt Count 381 D
Sodium 137
Potassium 5.1
Chloride 98
Carbon Dioxide 23
BUN 57 H
Creatinine 3.5 H
Glucose 130 H
Calcium 10.6 H
Vital Signs:
Vital Signs
Temp Pulse Resp BP Pulse Ox
98.2 F 87 10 122/84 99
06/17/23 07:03 06/17/23 10:00 06/17/23 10:00 06/17/23 06:00 06/17/23 10:00
I&O
06/16/23 06/17/23 06/18/23
06:59 06:59 06:59
Intake Total 240 / 240
Output Total 800 / 800 2250 / 2250
Balance -800 / -800 -2009
Review of Systems
-
History Source: Patient
All other systems: Not reviewed unless documented
Data Reviewed
-
CT Scan: Image personally visualized and interpreted and Report Reviewed by me
Labs: Labs Reviewed by me
--- NOTE | 2023-06-17 20:00 | PTCARENOTE ---
Assume care from AM RN. VSS, afebrile and no c/o pain. AAOx3. ST to NSR in the monitor. B/L Nephro tube and suprapubic intact. Pt drains all his own drains. Pt refuses heparin. Pt appears comfortable in bed and call llanes within reach.
[2023-06-17] MEDS: SEROQUEL 200 MG PO (21:03)
[2023-06-18] VITALS: BP 113/69
[2023-06-18] MEDS: ROCEPHIN 1000 MG IV (01:41)
[2023-06-18] MEDS: STERILE WATER FOR INJECTION 10 ML IV (01:41)
[2023-06-18 02:00] VITALS: BP 114/77
[2023-06-18 04:00] VITALS: BP 119/74
[2023-06-18 05:29] LABS: Hematocrit 30.1 % (39.0-52.0); Hemoglobin 9.4 g/dL (13.0-18.0); Mean Corp Hgb Conc. 31.2 g/dL (33.0-37.0); Mean Corpuscular Hgb 29.1 pg (27.0-31.0); Mean Corpuscular Volume 93.2 fL (80.0-94.0); Mean Platelet Volume 9.4 fL (7.4-10.4); Platelet Count 414 10^3/uL (130-400); Red Blood Cell Count 3.23 10^6/uL (4.70-6.10); Red Cell Dist. Width 12.7 % (11.5-14.5); White Blood Cell Count 14.2 10^3/uL (4.8-10.8)
[2023-06-18 06:06] LABS: Blood Urea Nitrogen 61 mg/dl (9-20); Calcium 10.4 mg/dl (8.4-10.2); Carbon Dioxide 25 mmol/L (22-30); Chloride 97 mmol/L (98-107); Estimated Creatinine Clearance 24 ml/min; Glucose 101 mg/dl (70-99); Magnesium 2.2 mg/dl (1.6-2.3); Phosphorus 7.1 mg/dl (2.5-4.5); Potassium 4.8 mmol/L (3.5-5.1); Sodium 138 mmol/L (135-145); eGFR 22.74
[2023-06-18] MEDS: METHADONE 100 MG/10 ML 40 MG PO (07:40)
[2023-06-18] MEDS: HEPARIN SC (07:40)
[2023-06-18] MEDS: MIRALAX PO (07:41)
--- NOTE | 2023-06-18 10:16 | CM ---
Late Entry for 06/17/23:
Patient with Hx anxiety, depression with Dx Acute encephalopathy, Fentanyl overdose, Acute on chronic renal failure, Dehydration, UTI possibly pyelonephritis. Patient on probation per MD notes- nurse reports patient wearing ankle bracelet. COWS
protocol. Receiving methadone.
Spoke with PATT Lezama: [facility] methadone program provided letter of return to [facility]. [facility] and no beds currently, will probably be able to take him tomorrow.
Dr Ernst updated re; d/c planning.
Plan follow up with PATT tomorrow if [facility] has an available bed.
--- NOTE | 2023-06-18 11:21 | CM ---
Addendum entered by Jeanette Belcher RN 06/18/23 16:53:
Spoke with PATT Armas; they will fax the d/c med list to [facility]- their fax [phone].
Original Note:
Patient with Hx anxiety, depression with Dx Acute encephalopathy, Fentanyl overdose, Acute on chronic renal failure, Dehydration, UTI possibly pyelonephritis. Patient on probation per MD notes- nurse reports patient wearing ankle bracelet. COWS
protocol. Receiving methadone.
Spoke with PATT Armas/[facility], Cable Splicer Helper PATT/[facility] (ph [phone]); patient did phone screen with [facility] today and they are able to accept him today. They set up an [employer] transport
and will pickle processor the patient at 12:30pm. They are not able to ask to delay transport until later today for patient convenience, or we are in danger of losing the available bed.
Met with patient who states he feels ready for d/c and who agrees to [facility] today by [employer] transport. IMM completed. Patient asked if he could go to [facility] this evening so his mom could visit and bring him more clothes and
cigarettes (mother is busy all day today getting chemo)- explained to him that there are no alternate transport options other than 12:30pm and patient agrees to transport time. He stated he mother visited him yesterday and he already has some
clothes here. Patient reports that she will be able to visit him there at [facility].
Plan [facility] today by [employer] transport.
--- NOTE | 2023-06-18 11:46 | W.PN.HOSP.TC ---
Addendum entered and electronically signed by Adan Ernst MD 06/18/23 15:40:
CKD IV with rise in creatinine only
Addendum entered and electronically signed by Adan Ernst MD 06/18/23 15:34:
[id number]
Original Note:
Today's Communication/Plan
-
f/u pcp, nephro, urology outpatient
f/u tube exchange at [place]
F/u BMP, phos in 3-5 days
dc to [facility]
Assessment / Plan
Assessment / Plan
Physical Exam
General: No pallor, cyanosis, or jaundice.
HEENT: Throat clear. PERRLA Normocephalic atraumatic
NECK: Supple. No JVD Carotid Bruits
RESPIRATORY: Lungs clear to auscultation. No crackles wheezes stridor
CVS: S1, S2 normal. RRR. No murmur, rub or gallop.
ABDOMEN: Soft, non-tender. distended, decreased bowel sounds. flank tenderness
EXTREMITIES: No peripheral cyanosis or edema.
PRECONSTRUCTION MANAGER: Lethargic but arousable coherent conversant
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 Here with Fentanyl overdose UTI possible
pyelonephritis CT concerning for severe hydronephrosis and constipation impaction stercoral colitis suspect opiate induced
#Acute Toxic encephalopathy, likely secondary to Narcan overdose, no evidence of infection at this time
#Fentanyl overdose
#Chronic narcotic dependent
#History of polysubstance abuse
-resolved
-psych following
-[facility] being offered - patient accepting - accepted - awaiting bed
-Cont methadone
-Seroquel
#Chronic renal failure
#Severe constipation fecal impaction stercoral colitis
-PCNs placed; plan for exchange on 06/29/23
-�Urology consulted, no intervention at this time
� Follow-up at [place] for tube exchange
� Advised tubes should be placed on continuous drainage but patient declines
-F/u BMP, phos outpatient, may need phos binder
#Hyperkalemia
-monitor and treat
-low potassium diet
#UTI, E-COLI
-cont abx - switch to cefdinir to complete 14 day course for complicated UTI
#Constipation
� Most likely multifactorial including medications, followed at [facility]
� Refusing mineral oil enemas despite offering
� Bowel regimen, add MiraLAX daily
� having Bms
#History of Johnson sarcoma
CODE STATUS full code
DVT prophylaxis HSQ
More than 30 minutes spent in discharge including
Final examination of the patient
Summarizing hospital stay
Instructions for continuing care to all relevant caregivers
Preparation of discharge records, prescriptions, and referral forms
Total time spent (35 in minutes):
Anticipated Discharge: Today
Subjective/Interval History
-
Date of Service: June 18, 2023
no acute events
Objective Data
-
Labs:
Laboratory Results
06/18/23
05:05
WBC 14.2 H
Hgb 9.4 L
Hct 30.1 L
Plt Count 414 H
Sodium 138
Potassium 4.8
Chloride 97 L
Carbon Dioxide 25
BUN 61 H
Creatinine 3.6 H
Glucose 101 H
Calcium 10.4 H
Vital Signs:
Vital Signs
Temp Pulse Resp BP Pulse Ox
98.2 F 92 11 119/74 97
06/18/23 07:00 06/18/23 04:00 06/18/23 04:00 06/18/23 04:00 06/18/23 04:00
I&O
06/17/23 06/18/23 06/19/23
06:59 06:59 06:59
Intake Total 240 / 240 720 / 720
Output Total 2250 / 2250 1525 / 1525
Balance -2009 / -2009 - / 80
Review of Systems
-
History Source: Patient
All other systems: Not reviewed unless documented
Data Reviewed
-
CT Scan: Image personally visualized and interpreted and Report Reviewed by me
Labs: Labs Reviewed by me
--- NOTE | 2023-06-18 11:49 | W.DS.TRANS ---
DC Summary - Laundry Routeman
-
Discharge Instructions:
Discharge Diagnosis/Procedures
#Acute Toxic encephalopathy, likely secondary to
Narcan overdose, no evidence of infection at
this time
#Fentanyl overdose
#Chronic narcotic dependent
Diet Low Fat,Low Cholesterol,2 Gram Sodium,Restrict
fluids to 48 oz,Other diet
Additional Diets low potassium
Activity As tolerated
Blood Work bmp, phosph in 3-5 days with pcp
Instructions:
Stand-Alone Forms:
Changes to Home Medications: Yes
Discharge Medications:
DC Medications w/original date entered in [facility]
methadone 1 dose PO DAILY 06/13/23
quetiapine 200 mg tablet 200 mg PO HS 06/13/23
cefdinir 300 mg capsule 300 mg PO BID 9 days #18 caps 06/18/23
polyethylene glycol 3350 17 gram oral powder packet (HealthyLax) 17 g PO DAILY #0 ea 06/18/23
Home Medication Changes
cefdinir 300 mg capsule 300 mg PO BID 9 days #18 caps 06/18/23
polyethylene glycol 3350 17 gram oral powder packet (HealthyLax) 17 g PO DAILY #0 ea 06/18/23
Pending Results: No
--- NOTE | 2023-06-18 12:29 | PTCARENOTE ---
Patient received this am from change of shift RN. PT resting in bed AAOx3, reports no discomfort at this time. Patient refused anticoagulation -heparin as well as miralax. Patient with B/L nephro tube and suprapubic tube, patient refused bag
attachment to site to help drain. RN educated on the risk of infection and patient continued to refuse.
== END 2023-06-18 12:55 | DRG 917 ==
LOC: IMU 16:17
PROVIDERS: Internal Medicine; Nurse Practitioner Family; Physician Assistant; ADMITTING PHYSICIAN Internal Medicine; ATTENDING PHYSICIAN Internal Medicine; CONSULT PHYSICIAN Internal Medicine Gastroenterology; CONSULT PHYSICIAN Psychiatry & Neurology Psychiatry; CONSULT PHYSICIAN Specialist; EMERGENCY PHYSICIAN Emergency Medicine
DX: T40.411A Poisoning by fentanyl or fentanyl analogs, accidental (unintentional), initial encounter (principal); G92.9 Unspecified toxic encephalopathy; T83.511A Infection and inflammatory reaction due to indwelling urethral catheter, initial encounter; N13.6 Pyonephrosis; F11.20 Opioid dependence, uncomplicated; N17.9 Acute kidney failure, unspecified; N18.4 Chronic kidney disease, stage 4 (severe); F32.A Depression, unspecified; F41.9 Anxiety disorder, unspecified; N31.9 Neuromuscular dysfunction of bladder, unspecified; N13.722 Vesicoureteral-reflux with reflux nephropathy without hydroureter, bilateral; K59.09 Other constipation; E87.5 Hyperkalemia; Z75.1 Person awaiting admission to adequate facility elsewhere; Z93.6 Other artificial openings of urinary tract status
CPT/HCPCS: 74176; 80048; 80053; 80306; 80307; 81003; 81015; 83605; 83735; 84100; 85025; 85027; 87040; 87077; 87086; 87186; 93005; 96361; 96374; 96375; 99285

== ENCOUNTER 2024-02-12 15:44 | Emergency (ER) | payer MEDICARE, OTHER, SELFPAY ==
--- NOTE | 2024-02-12 16:03 | ED.GENMED ---
ED Provider Triage
<Nai Gunter COMPOUND COATING MACHINE OFFBEARER - Last Filed: 02/12/24 18:19>
-
Patient seen by provider in Triage?: Seen in Triage
Attestation: A medical screening examination has been initiated by a qualified medical provider. Based on the assessment performed at this time, it has been determined that an emergent medical condition may exist and the patient has been informed
that further medical evaluation and possible additional diagnostic testing may be needed.
HPI: 28-year-old male with history of bilateral nephrostomy tubes typically being replaced every 3 months, 2 weeks ago accidentally sat on his left nephrostomy tube and dislodged it so he had 'emergency' bilateral nephrostomy tube placement at [facility]
on 01/31. States pain R>L nephrostomy tube sites now pain 8/10 R nephrostomy site, L pain is 5/10. Tubes are draining at their baseline amounts.
GENERAL: Alert , in no apparent distress
EYE: No visual abnormalities.
NECK: Trachea midline
ENT: No visible abnormalities.
LUNGS: No acute respiratory distress
NEUROLOGICAL: Alert and oriented
SKIN: Skin intact. No visible changes.
MUSCULOSKELETAL: Moving extremities normally
PSYCH: Normal and appropriate interaction.
This is a medical evaluation conducted in person to initiate diagnostic evaluation and provide initial therapeutics. Please see further documentation by the treating clinician.
History of Present Illness
<Nai Gunter, COMPOUND COATING MACHINE OFFBEARER - Last Filed: 02/12/24 18:19>
General
Chief Complaint: Post Operative Problem(s)
Time Seen by Provider: 02/12/24 20:16
<Arcadio Martínez DO - Last Filed: 02/12/24 22:28>
History of Present Illness
History of Present Illness:
TIME OF INITIAL ENCOUNTER:
HPI: The patient has remote history of Johnson sarcoma and due to the chemo and radiation from treatment for this, he was left with renal failure. He states he was recently at [facility] where his maximum creatinines were in the 6's. He has increasing
pain. No definite fevers. He has had drainage of both of his nephrostomy tubes. He states his doctors at [facility] had been starting to talk to him about dialysis.
EXAM:
GENERAL: The patient appears chronically ill and debilitated
HEENT: Poor dentition
CARDIOVASCULAR: No murmurs, normal heart rate, regular rhythm, No chest wall tenderness
PULMONARY: No respiratory distress, breath sounds are clear and equal
ABDOMEN: Soft with no peritoneal signs, no tenderness
BACK: Bilateral nephrostomy tubes present draining clear yellow urine
NEUROLOGIC: Generally weak strength all extremities, no coordination deficits
PSYCHIATRIC: Appropriate mental status, normal insight and judgement
EXTREMITIES: Nontender, no edema, moves all extremities equally
SKIN: No rash, no lesions
NUMBER AND COMPLEXITY OF PROBLEMS ADDRESSED AT THE ENCOUNTER
� Chronic conditions affecting care: History of Johnson sarcoma, CKD, has bilateral nephrostomy tubes
� Acute Exacerbation and/or Progression of Chronic Illness: This is a recurring problem
� Differential Diagnosis includes: Worsening renal function, nephrostomy tube dislodged/complication
AMOUNT AND/OR COMPLEXITY OF DATA TO BE REVIEWED AND ANALYZED
� I performed an independent evaluation of and my interpretation is:
EKG:
CT: CT shows constipation, both nephrostomy tubes are in place with no evidence of perinephric collection
X-rays:
Laboratory Studies: White count 7.6, hemoglobin 8.7, creatinine is 5.1 which is [facility] however the patient states his creatinine was over 6 when he was at [facility].
Other:
� Review of other/old records: I reviewed records, hemoglobin tonight is near baseline
� Clinical information was obtained by an independent historian: Spoke to the mother at bedside
� Prescriptions/Medications Considered but not given:
� Further testing considered but not performed:
RISK OF COMPLICATIONS AND/OR MORBIDITY OR MORTALITY OF PATIENT MANAGEMENT
� Social determinants of health affecting care:
� Discussion with other providers:
� Escalation of care including admission/observation vs risk of discharge considered:
ANY OTHER UPDATES:
10:30 PM: The patient is resting and appears somewhat sedate. Not planning on giving any additional narcotic analgesia. He apparently is already on methadone. CT imaging reassuring�not showing any complication. He is to follow-up with his
doctors at [facility]
Past History
<Nai Gunter, COMPOUND COATING MACHINE OFFBEARER - Last Filed: 02/12/24 18:19>
Past History
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
ED Past Surgical History: Urological (Superpubic cath, Double J stents, nephrostomy tubes)
Social History
Tobacco: Non-smoker
Alcohol: None
Drug: Marijuana and Narcotics (Heroine and Fentanyl snorts)
Personal: Single
Living: with family
Phy Exam
<Arcadio Martínez DO - Last Filed: 02/12/24 22:28>
Physical Exam
Physical Exam:
See HPI
Course
<Nai Gunter, COMPOUND COATING MACHINE OFFBEARER - Last Filed: 02/12/24 18:19>
Orders/Labs/Results
Orders:
Orders
02/12/24 16:19
Complete Blood Count/With Diff Urgent
Comprehensive Metabolic Panel Urgent
02/12/24 20:06
Urinalysis Reflex To Culture Urgent
Date Specimen was Collected: 02/12/24
Time Specimen was Collected: 20:05
Comment: from L nephrostomy tube
Urine Microscopic Reflex Cult Urgent
Urine Culture Urgent
PEDRO LUIS Source: U
Specimen Description:
Date Specimen was Collected: 02/12/24
Time Specimen was Collected: 20:05
02/12/24 20:19
CT Abd/pel Without Iv Or Oral Urgent
Comment:
Reason For Exam: worsening renal func; pain; b/l nephrostomy tubes
02/12/24 20:24
Oxycodone [Roxicodone] 5 mg PO NOW STA
Abnormal Lab Results
02/12/24 02/12/24
16:19 20:06
RBC 3.05 L 10^6/uL
(4.70-6.10)
Hgb 8.7 L g/dL
(13.0-18.0)
Hct 28.2 L %
(39.0-52.0)
MCHC 30.9 L g/dL
(33.0-37.0)
Carbon Dioxide 21 L mmol/L
(22-30)
BUN 58 H mg/dl
(9-20)
Creatinine 5.1 H* mg/dL
(0.7-1.3)
Glucose 59 L mg/dl
(70-99)
Alkaline Phosphatase 130 H U/L
(38-126)
Total Protein 8.4 H g/dl
(6.3-8.2)
Ur Occult Blood Reflex 3+ A
(Negative)
Leukocyte Esterase Rfl 2+ A
(Negative)
Urine WBC (Reflex) >100 A /HPF
(0-5)
Urine Bacteria (Reflex) Many A
(Negative)
Urine Albumin (Reflex) 1+ A
(Neg - Trace)
02/12/24 16:19
02/12/24 16:19
Vital Signs
Initial and Last Documented VS:
Initial Vital Signs
Temp Pulse Resp BP Pulse Ox
36.4 C 52 18 116/71 98
02/12/24 16:05 02/12/24 16:05 02/12/24 16:05 02/12/24 16:05 02/12/24 16:05
Last Documented Vital Signs
Temp Pulse Resp BP Pulse Ox
36.9 C 51 16 111/78 99
02/12/24 20:10 02/12/24 22:00 02/12/24 20:10 02/12/24 22:00 02/12/24 22:00
<Arcadio Martínez, DO - Last Filed: 02/12/24 22:28>
Orders/Labs/Results
Orders:
Orders
02/12/24 16:19
Complete Blood Count/With Diff Urgent
Comprehensive Metabolic Panel Urgent
02/12/24 20:06
Urinalysis Reflex To Culture Urgent
Date Specimen was Collected: 02/12/24
Time Specimen was Collected: 20:05
Comment: from L nephrostomy tube
Urine Microscopic Reflex Cult Urgent
Urine Culture Urgent
PEDRO LUIS Source: U
Specimen Description:
Date Specimen was Collected: 02/12/24
Time Specimen was Collected: 20:05
02/12/24 20:19
CT Abd/pel Without Iv Or Oral Urgent
Comment:
Reason For Exam: worsening renal func; pain; b/l nephrostomy tubes
02/12/24 20:24
Oxycodone [Roxicodone] 5 mg PO NOW STA
Abnormal Lab Results
02/12/24 02/12/24
16:19 20:06
RBC 3.05 L 10^6/uL
(4.70-6.10)
Hgb 8.7 L g/dL
(13.0-18.0)
Hct 28.2 L %
(39.0-52.0)
MCHC 30.9 L g/dL
(33.0-37.0)
Carbon Dioxide 21 L mmol/L
(22-30)
BUN 58 H mg/dl
(9-20)
Creatinine 5.1 H* mg/dL
(0.7-1.3)
Glucose 59 L mg/dl
(70-99)
Alkaline Phosphatase 130 H U/L
(38-126)
Total Protein 8.4 H g/dl
(6.3-8.2)
Ur Occult Blood Reflex 3+ A
(Negative)
Leukocyte Esterase Rfl 2+ A
(Negative)
Urine WBC (Reflex) >100 A /HPF
(0-5)
Urine Bacteria (Reflex) Many A
(Negative)
Urine Albumin (Reflex) 1+ A
(Neg - Trace)
02/12/24 16:19
02/12/24 16:19
Vital Signs
Initial and Last Documented VS:
Initial Vital Signs
Temp Pulse Resp BP Pulse Ox
36.4 C 52 18 116/71 98
02/12/24 16:05 02/12/24 16:05 02/12/24 16:05 02/12/24 16:05 02/12/24 16:05
Last Documented Vital Signs
Temp Pulse Resp BP Pulse Ox
36.9 C 51 16 111/78 99
02/12/24 20:10 02/12/24 22:00 02/12/24 20:10 02/12/24 22:00 02/12/24 22:00
<Arcadio Martínez DO - Last Filed: 02/12/24 22:28>
*Critical Care Note
Total Time (30-74mins, 75-104mins- exclusive of procedures): Not Applicable
ED Attending Note
<Nai Gunter, COMPOUND COATING MACHINE OFFBEARER - Last Filed: 02/12/24 18:19>
-
Portions of this chart may have been created with voice recognition software.� Occasional wrong word or��sound alike� substitutions may have occurred due to the inherent limitations of voice recognition software.
Discharge Plan
Departure
Prescriptions:
No Action
quetiapine [Seroquel] 200 mg Tablet
200 mg PO HS
folic acid 1 mg Tablet
1 mg PO DAILY
methadone 10 mg/mL Concentrate
110 mg PO DAILY
bupropion HCl [Wellbutrin XL] 150 mg Tablet Extended Release 24 Hr
150 mg PO DAILY
Referrals:
NONE,* [Family Provider] -
Interventions
Interventions:
*Risk Screen - Suicide Last Done: 02/12/24 16:05
*General Assessment Last Done: 02/12/24 19:48
*Neglect/Abuse Screening Last Done: 02/12/24 16:05
ED- Fall Risk Assessment Last Done: 02/12/24 20:13
*ED COVID-19 Vaccine History Last Done: 02/12/24 19:48
ED-Skin Assessment Last Done: 02/12/24 20:13
Discharge Date and Time
Print Language: ALBANIAN
[2024-02-12 16:05] VITALS: BP 116/71
[2024-02-12 16:48] LABS: % Basophils 1.2 % (0-2); % Eosinophils 4.1 % (0-6); % Immature Granulocytes 0.5 % (0-0.5); % Lymphocytes 24.5 % (20.5-51.1); % Monocytes 7.1 % (1.7-9.3); % Neutrophils 62.6 % (42.2-75.2); Absolute Basophils 0.1 10^3/uL (0-0.2); Absolute Eosinophils 0.3 10^3/uL (0-0.7); Absolute Lymphocytes 1.9 10^3/uL (1.2-3.4); Absolute Monocytes 0.5 10^3/uL (0.1-0.6); Absolute Neutrophils 4.7 10^3/uL (1.4-6.5); Hematocrit 28.2 % (39.0-52.0); Hemoglobin 8.7 g/dL (13.0-18.0); Mean Corp Hgb Conc. 30.9 g/dL (33.0-37.0); Mean Corpuscular Hgb 28.5 pg (27.0-31.0); Mean Corpuscular Volume 92.5 fL (80.0-94.0); Nucleated Red Blood Cells % 0 % (-); Platelet Count 267 10^3/uL (130-400); Red Blood Cell Count 3.05 10^6/uL (4.70-6.10); Red Cell Dist. Width 12.2 % (11.5-14.5); White Blood Cell Count 7.6 10^3/uL (4.8-10.8)
[2024-02-12 17:25] LABS: ALT (SGPT) 11 U/L (0-50); AST (SGOT) 20 U/L (17-59); Albumin 4.9 g/dl (3.5-5.0); Alkaline Phosphatase 130 U/L (38-126); Blood Urea Nitrogen 58 mg/dl (9-20); Calcium 9.4 mg/dl (8.4-10.2); Carbon Dioxide 21 mmol/L (22-30); Chloride 103 mmol/L (98-107); Glucose 59 mg/dl (70-99); Potassium 5.1 mmol/L (3.5-5.1); Sodium 141 mmol/L (135-145); Total Bilirubin 0.2 mg/dl (0.2-1.3); Total Protein 8.4 g/dl (6.3-8.2); eGFR 14.88
[2024-02-12 18:17] VITALS: BP 105/67
[2024-02-12 18:19] VITALS: BP 105/67
--- NOTE | 2024-02-12 19:52 | EDRN ---
Pt had surgery at [facility] Thursday before because L nephrostomy tube ripped out because he sat on it. Pt stayed all weekend because IR didn't do procedure until Thursday at which time both nephrostomy tuibes were replaced and he was watched
for couple days after that because his creatnine was 5-6. Pt's baseline is 4. Pt left Thursday before . Pain is usually better within couple days at most, 1 week after surgery. Pt says he still has pain. R side is 8-19/10 and L
side is 5/10. Mother says pt's coloring is not good, he is groggy and tired and walking hunched over. Pt has been getting urine out of both tubes but says he normally does not get much out of the R tube at all. Pt says his kidneys work at about
16%. Pt has lower abdominal pain in bladder area. Pt's suprapubic tube was removed in summertime. No fever/chills, cp, sob.
[2024-02-12 20:00] VITALS: BMI 21.8
[2024-02-12 20:09] VITALS: BP 117/81
[2024-02-12 20:16] LABS: Urine Albumin 1+ (Neg - Trace); Urine Bilirubin Negative (Negative); Urine Character Slightly Cloudy (Clear); Urine Color Yellow; Urine Glucose Negative (Negative); Urine Ketone Negative (Negative); Urine Leukocyte 2+ (Negative); Urine Nitrite Negative (Negative); Urine Occult Blood 3+ (Negative); Urine Urobilinogen Negative (Neg - 1+)
[2024-02-12 20:34] LABS: Urine Bacteria Many (Negative); Urine White Cell >100 /HPF (0-5)
[2024-02-12] MEDS: ROXICODONE 5 MG PO (20:41)
[2024-02-12 21:12] VITALS: BP 109/75
[2024-02-12 22:00] VITALS: BP 111/78
== END 2024-02-12 23:05 | disposition home or self-care (01) ==
LOC: EMR 15:44
PROVIDERS: Registered Nurse; EMERGENCY PHYSICIAN Emergency Medicine
DX: T83.84XA Pain due to genitourinary prosthetic devices, implants and grafts, initial encounter (principal); X58.XXXA Exposure to other specified factors, initial encounter; Y73.2 Prosthetic and other implants, materials and accessory gastroenterology and urology devices associated with adverse incidents; Z99.2 Dependence on renal dialysis
CPT/HCPCS: 99284; 74176; 80053; 81003; 81015; 85025; 87086; 87147; 87186